=== PATIENT | male | born 2000 | race Caucasian/White ===

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

== ENCOUNTER 2023-04-17 13:55 | Emergency (ER) | payer SELFPAY ==
[2023-04-17] MEDS ORDERED: Orphenadrine 60 MG/2 ML Inj IM ONE (14:08)
[2023-04-17] MEDS ORDERED: Ketorolac 60 MG/2 ML SDV IM ONE (14:08)
[2023-04-17] MEDS ORDERED: Cyclobenzaprine 10 MG Tab PO ONE (14:59)
== END 2023-04-17 16:29 | disposition home or self-care (01) ==
LOC: MW.ED 13:55
DX: M54.50 Low back pain, unspecified (principal); G89.29 Other chronic pain; Z86.16 Personal history of COVID-19
CPT/HCPCS: 72100; 96372; 99283; A9270; J1885

== ENCOUNTER 2025-06-18 05:55 | Emergency (ER) | payer BC ==
[2025-06-18] MEDS: methylPREDNISolone Sodium Succinate 40 MG/1 ML SDV IM ONE (06:19)
[2025-06-18 06:24] LABS: GLUCOSE,URINE NEGATIVE (NEGATIVE); OCCULT BLOOD,URINE NEGATIVE (NEGATIVE)
[2025-06-18 06:24] LABS: BASOPHILS ABSOLUTE AUTO 0.05 K/uL (0.00-0.20); BASOPHILS PERCENT AUTO 1.0 % (0.0-1.0); EOSINOPHILS ABSOLUTE AUTO 0.06 K/uL (0.00-0.45); EOSINOPHILS PERCENT AUTO 1.2 % (0.0-6.0); IMMATURE GRAN ABSOLUTE AUTO 0.00 K/uL (0.00-0.05); IMMATURE GRAN PERCENT AUTO 0.0 % (0.0-0.4); LYMPHOCYTES ABSOLUTE AUTO 2.01 K/uL (1.00-4.80); LYMPHOCYTES PERCENT AUTO 40.4 % (24.0-44.0); MEAN PLATELET VOLUME 10.2 fL (9.4-12.4); MONOCYTES ABSOLUTE AUTO 0.37 K/uL (0.00-0.80); MONOCYTES PERCENT AUTO 7.4 % (0.0-8.0); NEUTROPHILS ABSOLUTE AUTO 2.48 K/uL (1.80-7.70); NEUTROPHILS PERCENT AUTO 50.0 % (41.0-71.0); NRBC ABSOLUTE 0.00 K/uL (0.00-0.02); NRBC PERCENT 0.0 /100WBC (0.0-0.2); PLATELET COUNT,PLT 262 K/uL (150-400); RED BLOOD CELL COUNT 5.83 M/uL (4.52-5.90); WHITE BLOOD CELL COUNT,WBC 4.97 K/uL (3.9-11.3)
[2025-06-18] MEDS: Ketorolac 30 MG/ML SDV IM ONE (06:25)
[2025-06-18 06:27] LABS: APPEARANCE,URINE HAZY
[2025-06-18 06:30] LABS: SQUAMOUS EPITHELIAL CELLS,UR FEW
[2025-06-18] MEDS: Ketorolac 30 MG/ML SDV IVPUSH ONE (06:31)
[2025-06-18] MEDS: methylPREDNISolone Sodium Succinate 125 MG/2 ML SDV IVPUSH ONE (06:31)
[2025-06-18 06:33] LABS: BLOOD UREA NITROGEN,BUN 19.0 mg/dL (7.0-18.0); CARBON DIOXIDE,CO2 27.3 mmol/L (21.0-32.0); CHLORIDE,CL 103.0 mmol/L (98-107); CREATININE 1.2 mg/dL (0.8-1.3); EST CRCL DRUG DOSING (CG) 104.19 mL/min; GLUCOSE RANDOM 108.0 mg/dL (74-106); POTASSIUM,K 4.2 mmol/L (3.5-5.1); SODIUM,NA 140.0 mmol/L (136-148)
[2025-06-18 06:34] LABS: ESTIMATED GFR 87.0 mL/min (>60)
== END 2025-06-18 07:51 | disposition home or self-care (01) ==
LOC: MW.ED 05:55
DX: M54.50 Low back pain, unspecified (principal); G89.29 Other chronic pain; Z79.899 Other long term (current) drug therapy; Z86.16 Personal history of COVID-19
CPT/HCPCS: 36415; 80048; 81001; 85025; 96374; 96375; 99283; A9270; J1885; J2919; 99284